=== PATIENT | female | born 1965 | race Caucasian/White ===

== ENCOUNTER 2017-06-14 17:10 | Emergency (ER) | payer OTHER ==
[~2017-06-14] VITALS: Ht 152.4 cm; Wt 70.8 kg
[~2017-06-14 17:10] MED LIST: IMITREX50 MG PO; PROPRANOLOL HCL40 MG PO
[2017-06-14 17:16] VITALS: BP 105/95
[2017-06-14] MEDS: KETOROLAC 60 MG/2 ML VIAL IM ONE (18:41)
[2017-06-14] MEDS: METOCLOPRAMIDE 10 MG/2 ML INJ VIAL IM ONE (18:44)
[2017-06-14] MEDS: MORPHINE SULFATE 4 MG/ML SYR IM ONE (19:05)
[2017-06-14 19:45] VITALS: BP 125/72
== END 2017-06-14 19:45 | disposition home or self-care (01) ==
LOC: MED 17:10
DX: G43.909 Migraine, unspecified, not intractable, without status migrainosus (principal); Z79.899 Other long term (current) drug therapy
CPT/HCPCS: 96372; 99284; J1885; J2270; J2765

== ENCOUNTER 2018-01-05 19:52 | Emergency (ER) | payer OTHER ==
[~2018-01-05] VITALS: Ht 152.4 cm; Wt 74.8 kg
[~2018-01-05 19:52] MED LIST changes: +IMI50 PO; -IMITREX50 MG PO; +PROP40TA29 PO; -PROPRANOLOL HCL40 MG PO
[2018-01-05 19:55] VITALS: BP 127/78
--- NOTE | 2018-01-05 20:02 | NUR ---
URINE SAMPLE COLLECTED.
--- NOTE | 2018-01-05 20:30 | NUR ---
52 Y/O F W/C/O EPIGASTRIC PAIN WHICH RADIATES TO BACK X 1 MTH ON AND OFF. MED HX CHOLYCYSTECTOMY 20 YRS AGO, HYPOTHYROIDISM. NO OTHER S/S OF DISTRESS NOTED. ER MADE AWARE.
[2018-01-05] MEDS ORDERED: DICYCLOMINE HCL LIQUID 20 MG, ALUMINUM HYD/MAG/SIMETHICONE 30 ML, LIDOCAINE VISCOUS 2% ... PO ONE ×3 (21:05)
[2018-01-05 21:46] LABS: BASOPHILS # (AUTO) 0.1 K/uL (0.00-0.22); BASOPHILS % (AUTO) 0.6 % (0.0-2.0); EOSINOPHILS # (AUTO) 0.1 K/uL (0-0.4); EOSINOPHILS % (AUTO) 1.7 % (0.0-4.0); HEMATOCRIT 41.4 % (36-48); HEMOGLOBIN 13.9 g/dL (12.0-16.0); MEAN CORPUSCULAR HEMOGLOBIN 30 pg (27-31); MEAN CORPUSCULAR HGB CONC 34 g/dL (33-37); MEAN CORPUSCULAR VOLUME 90.5 fL (80-94); MONOCYTES # (AUTO) 0.5 K/uL (0.8-1.0); MONOCYTES % (AUTO) 6.7 % (1.7-9.3); NEUTROPHILS # (AUTO) 4.4 K/uL (1.8-7.7); PLATELET COUNT (AUTO) 238 K/uL (140-450); RED BLOOD CELL COUNT(AUTO) 4.58 MIL/uL (4.20-5.40); RED CELL DISTRIBUTION WIDTH 13.8 % (11.6-13.7); WHITE BLOOD COUNT (AUTO) 8.1 K/uL (4.8-10.8)
--- NOTE | 2018-01-05 22:03 | NUR ---
PT RESTING IN BED, VSS, STATES HER PAIN HAS IMPROVED. ER MD MADE AWARE.
[2018-01-05 22:07] LABS: ANION GAP 11.9 (8-16); CARBON DIOXIDE 25.6 mmol/L (21-32); CREATININE 0.6 mg/dL (0.6-1.3); POTASSIUM 3.5 mmol/L (3.5-5.1)
[2018-01-05 22:12] LABS: ALBUMIN 3.9 g/dL (3.4-5.0); TOTAL BILIRUBIN 0.2 mg/dL (0.0-1.0)
[2018-01-05 22:26] VITALS: BP 107/72
--- NOTE | 2018-01-05 22:26 | NUR ---
Patient discharged with v/s stable. Written and verbal after care instructions given and explained. Patient alert, oriented and verbalized understanding of instructions. Ambulatory with steady gait. All questions addressed prior to discharge. ID band removed. Patient advised to follow up with PMD. Rx of MYLANTA given. Patient educated on indication of medication including possible reaction and side effects. Opportunity to ask questions provided and answered.
== END 2018-01-05 22:26 | disposition home or self-care (01) ==
LOC: MED 19:52
DX: R10.13 Epigastric pain (principal); E03.9 Hypothyroidism, unspecified; Z90.49 Acquired absence of other specified parts of digestive tract
CPT/HCPCS: 36415; 80053; 81002; 81025; 83690; 84484; 85025; 93005; 99285

== ENCOUNTER 2022-10-27 09:59 | Emergency (ER) | payer OTHER ==
[~2022-10-27] VITALS: Ht 152.4 cm; Wt 68.0 kg
[2022-10-27 10:15] VITALS: BP 110/61
--- NOTE | 2022-10-27 10:22 | NUR ---
ASSUMED PATIENT CARE, NURSING ASSESSMENT COMPLETED.
[2022-10-27] MEDS ORDERED: ACETAMINOPHEN EXTRA STRENGTH 500 MG TAB PO ONE (11:45)
[2022-10-27] MEDS ORDERED: cephALEXin 500 MG CAP PO ONE (11:45)
[2022-10-27] MEDS ORDERED: SULFAMETH/TRIMETH DS 800/160MG 1 TAB PO ONE (11:45)
[2022-10-27] MEDS ORDERED: SULF-59 PO (12:10)
[2022-10-27] MEDS ORDERED: CEPH-588 PO (12:10)
[2022-10-27] MEDS ORDERED: BACI-416 TP (12:11)
[2022-10-27] MEDS ORDERED: BACITRACIN OINT 500 UNITS/GM PKT TP ONE (12:15)
--- NOTE | 2022-10-27 12:58 | NUR ---
DISPO AND MEDICAL DECISION MAKING DC HOME WITH E-RX AND AFTERCARE INSTRUCTIONS, UNDERSTOOD BY PATIENT WELL, WUND CARE COMPLETED. DC AMBULATORY, VS WNL.
[2022-10-27 13:00] VITALS: BP 112/61
== END 2022-10-27 13:00 | disposition home or self-care (01) ==
LOC: MED 09:59
DX: L03.116 Cellulitis of left lower limb (principal); L02.416 Cutaneous abscess of left lower limb
CPT/HCPCS: 99284

== ENCOUNTER 2023-05-14 11:53 | Inpatient (IN) | payer OTHER ==
[~2023-05-14] VITALS: Ht 152.4 cm; Wt 72.6 kg
[~2023-05-14 11:53] MED LIST changes: +BACI-418 TP; +CEPH-588 PO; +SULF-59 PO
[2023-05-14 12:22] VITALS: BP 109/67; PULSE 75; RESP 16; TEMP 98; O2SAT 98
[2023-05-14 12:50] VITALS: O2SAT 98
[2023-05-14] MEDS ORDERED: ALUMINUM HYD/MAG/SIMETHICONE 30 ML UDC PO ONE (13:10)
[2023-05-14] MEDS ORDERED: ONDANSETRON 4 MG ODT PO ONE (13:10)
[2023-05-14] MEDS ORDERED: KETOROLAC 30 MG/ML VIAL IM ONE (13:10)
[2023-05-14 13:34] LABS: BASOPHILS % (AUTO) 0.3 % (0.0-2.0); EOSINOPHILS % (AUTO) 0.2 % (0.0-4.0); HEMATOCRIT 37.5 % (36-48); HEMOGLOBIN 12.5 g/dL (12.0-16.0); LYMPHOCYTES # (AUTO) 0.7 K/uL (2.5-16.5); LYMPHOCYTES % (AUTO) 5.7 % (20.5-51.1); MEAN CORPUSCULAR HEMOGLOBIN 31 pg (27-31); MEAN CORPUSCULAR HGB CONC 33 g/dL (33-37); MEAN CORPUSCULAR VOLUME 93.9 fL (80-94); MONOCYTES # (AUTO) 0.5 K/uL (0.8-1.0); MONOCYTES % (AUTO) 3.9 % (1.7-9.3); NEUTROPHILS # (AUTO) 10.9 K/uL (1.8-7.7); NEUTROPHILS % (AUTO) 89.9 % (42.2-75.2); PLATELET COUNT (AUTO) 225 K/uL (140-450); RED CELL DISTRIBUTION WIDTH 15.3 % (11.6-13.7); WHITE BLOOD COUNT (AUTO) 12.1 K/uL (4.8-10.8)
[2023-05-14 13:50] LABS: ALBUMIN 2.5 g/dL (3.4-5.0); ANION GAP 9.2 (8-16); CALCIUM 8.4 mg/dL (8.5-10.1); CARBON DIOXIDE 29.1 mmol/L (21-32); CREATININE 0.6 mg/dL (0.6-1.3); POTASSIUM 3.3 mmol/L (3.5-5.1); TOTAL BILIRUBIN 0.6 mg/dL (0.0-1.0); TOTAL PROTEIN, SERUM 6.4 g/dL (6.4-8.2)
[2023-05-14] MEDS ORDERED: PANTOPRAZOLE 40 MG INJ VIAL IVP ONE (15:20)
[2023-05-14] MEDS ORDERED: PIPERACILLIN/TAZOBACTAM 3.375 GM in DEXTROSE 5% 50 ML IV ONE (15:20)
[2023-05-14] MEDS ORDERED: NACL 0.9% 1,000 ML IV ONE (15:20)
[2023-05-14] MEDS ORDERED: PIPERACILLIN/TAZOBACTAM 3.375 GM VIAL IV ONE (15:22)
[2023-05-14] MEDS ORDERED: MORPHINE SULFATE 2 MG/ML SYR IVP PRN ×2 (15:40→20:15)
[2023-05-14] MEDS ORDERED: ONDANSETRON 4 MG/2 ML VIAL IVP PRN ×2 (15:40→16:55)
[2023-05-14] MEDS ORDERED: ACETAMINOPHEN 325 MG TAB PO PRN (15:40)
[2023-05-14] MEDS ORDERED: NACL 0.9% 1,000 ML IV SCH (15:40)
[2023-05-14] MEDS ORDERED: LEVO0.0512 PO (15:52)
[2023-05-14 16:10] LABS: INR 0.94 (0.8-1.2); PARTIAL THROMBOPLASTIN TIME 27.9 secs (22-35.6); PROTHROMBIN TIME 9.9 secs (10.8-13.4)
[2023-05-14 16:24] LABS: LACTIC ACID 0.7 mmol/L (0.4-2.0)
[2023-05-14] MEDS ORDERED: LIDOCAINE/EPI MPF 1%1:200000 30 ML VIAL INJ ONE (16:45)
[2023-05-14] MEDS ORDERED: BUPIVACAINE-MPF 0.25% 30 ML VIAL INJ ONE (16:46)
[2023-05-14] MEDS ORDERED: HYDROmorphone 1 MG/ML AMP IVP PRN (16:55)
[2023-05-14] MEDS ORDERED: ROCURONIUM 50 MG/5 ML VIAL IV ONE ×3 (17:15→18:24)
[2023-05-14] MEDS ORDERED: SUCCINYLCHOLINE CHLORIDE 200 MG/10 ML VIAL IVP ONE ×2 (17:15→17:25)
[2023-05-14] MEDS ORDERED: fentaNYL citrate 0.05 MG/ML - 50mL vial IV ONE (17:15)
[2023-05-14] MEDS ORDERED: DEXAMETHASONE 4 MG/ML VIAL ONE ×2 (17:15→17:25)
[2023-05-14] MEDS ORDERED: DESFLURANE 240 ML BTL INH ONE (17:15)
[2023-05-14] MEDS ORDERED: SUGAMMADEX SODIUM 200 MG/2 ML VIAL IV ONE ×2 (17:15→19:34)
[2023-05-14] MEDS ORDERED: ONDANSETRON 4 MG/2 ML VIAL ONE ×2 (17:15→17:25)
[2023-05-14] MEDS ORDERED: fentaNYL citrate 0.05 MG/ML VIAL ONE (17:22)
[2023-05-14] MEDS ORDERED: PROPOFOL 200 MG/20 ML VIAL IV ONE (17:25)
[2023-05-14] MEDS ORDERED: HYDROmorphone PFS 2 MG/ML SYR ONE (18:07)
[2023-05-14] MEDS ORDERED: ONDANSETRON 4 MG/2 ML VIAL IV PRN (20:15)
[2023-05-14 20:52] VITALS: BP 126/75; PULSE 65; PULSE 69; RESP 18; TEMP 96.5; O2SAT 96
[2023-05-14] MEDS ORDERED: PIPERACILLIN/TAZOBACTAM 3.375 GM in DEXTROSE 5% 50 ML IV SCH (21:00)
[2023-05-15] VITALS: BP 103/55; PULSE 53; PULSE 66; RESP 18; TEMP 97.4; O2SAT 97
[2023-05-15] MEDS: DEXT 5% /NACL 0.9% 1,000 ML IV SCH ×4 (00:14→21:53)
[2023-05-15] MEDS ORDERED: PIPERACILLIN/TAZOBACTAM 4.5 GM VIAL IV ONE ×2 (00:22→06:02)
[2023-05-15] MEDS: PIPERACILLIN/TAZOBACTAM 4.5 GM in DEXTROSE 5% 100 ML IV SCH ×5 (00:42→23:30)
[2023-05-15 04:00] VITALS: BP 114/60; PULSE 56; PULSE 65; RESP 18; TEMP 97; O2SAT 97
[2023-05-15] MEDS: MORPHINE SULFATE 4 MG/ML SYR IV PRN ×2 (04:27→09:04)
[2023-05-15 06:07] LABS: HEMATOCRIT 34.2 % (36-48); HEMOGLOBIN 11.6 g/dL (12.0-16.0); LYMPHOCYTES # (AUTO) 0.5 K/uL (2.5-16.5); LYMPHOCYTES % (AUTO) 5.3 % (20.5-51.1); MEAN CORPUSCULAR HEMOGLOBIN 32 pg (27-31); MEAN CORPUSCULAR HGB CONC 34 g/dL (33-37); MEAN CORPUSCULAR VOLUME 93.8 fL (80-94); MONOCYTES # (AUTO) 0.4 K/uL (0.8-1.0); MONOCYTES % (AUTO) 3.9 % (1.7-9.3); NEUTROPHILS % (AUTO) 90.8 % (42.2-75.2); PLATELET COUNT (AUTO) 219 K/uL (140-450); RED BLOOD CELL COUNT(AUTO) 3.65 MIL/uL (4.20-5.40); WHITE BLOOD COUNT (AUTO) 9.9 K/uL (4.8-10.8)
[2023-05-15 06:26] LABS: ALBUMIN 1.9 g/dL (3.4-5.0); ANION GAP 7.7 (8-16); CARBON DIOXIDE 28.9 mmol/L (21-32); CREATININE 0.6 mg/dL (0.6-1.3); POTASSIUM 3.6 mmol/L (3.5-5.1); TOTAL BILIRUBIN 0.6 mg/dL (0.0-1.0); TOTAL PROTEIN, SERUM 5.6 g/dL (6.4-8.2)
[2023-05-15 08:00] VITALS: BP 104/54; PULSE 59; PULSE 65; RESP 19; TEMP 97.7; O2SAT 98
[2023-05-15] MEDS: ENOXAPARIN 40 MG/0.4 ML SYR SUBQ SCH (09:22)
[2023-05-15] MEDS: PANTOPRAZOLE 40 MG INJ VIAL IVP SCH (10:41)
[2023-05-15 12:00] VITALS: BP 134/56; PULSE 56; PULSE 62; RESP 19; TEMP 97.8; O2SAT 98
[2023-05-15] MEDS ORDERED: SUMAtriptan succinate 50 MG TAB PO PRN (12:35)
[2023-05-15] MEDS: HYDROmorphone 1 MG/ML AMP IVP PRN ×2 (13:02→18:30)
[2023-05-15 16:00] VITALS: BP 113/53; PULSE 56; PULSE 61; RESP 19; TEMP 98; O2SAT 98
[2023-05-15 20:00] VITALS: BP 103/53; PULSE 60; RESP 19; TEMP 97.6; O2SAT 95; O2SAT 98
[2023-05-15] MEDS: LORazepam 2 MG/ML VIAL IVP PRN (20:40)
[2023-05-15] MEDS ORDERED: BACITRACIN OINT 15000 UNITS/30 GM TUBE TP SCH (21:00)
[2023-05-16] VITALS (7 sets, daily range): BP systolic 104–117; BP diastolic 59–67; PULSE 55–72; RESP 17–20; TEMP 97–99; O2SAT 94–97
[2023-05-16] MEDS: HYDROmorphone 1 MG/ML AMP IVP PRN ×4 (00:50→18:50)
[2023-05-16] MEDS: PIPERACILLIN/TAZOBACTAM 4.5 GM in DEXTROSE 5% 100 ML IV SCH ×4 (05:19→23:06)
[2023-05-16] MEDS: DEXT 5% /NACL 0.9% 1,000 ML IV SCH ×2 (05:20→13:36)
[2023-05-16] MEDS: LEVOTHYROXINE 0.05 MG TAB PO SCH (05:39)
[2023-05-16 05:44] LABS: ALBUMIN 1.8 g/dL (3.4-5.0); ANION GAP 9.5 (8-16); CALCIUM 7.9 mg/dL (8.5-10.1); CARBON DIOXIDE 28.6 mmol/L (21-32); CHOL/HDL RATIO 4.8 (1-4.5); CREATININE 0.6 mg/dL (0.6-1.3); MAGNESIUM 1.8 mg/dL (1.8-2.4); PHOSPHORUS 3.7 mg/dL (2.5-4.9); POTASSIUM 3.1 mmol/L (3.5-5.1); TOTAL BILIRUBIN 0.4 mg/dL (0.0-1.0); TOTAL PROTEIN, SERUM 5.6 g/dL (6.4-8.2)
[2023-05-16] MEDS: PANTOPRAZOLE 40 MG INJ VIAL IVP SCH (08:23)
[2023-05-16] MEDS: ENOXAPARIN 40 MG/0.4 ML SYR SUBQ SCH (08:30)
[2023-05-16] MEDS ORDERED: PPN PER PHARMACY MC PRN (09:38)
[2023-05-16] MEDS: KCL 20 MEQ IN 100 mL PREMIX 200 ML IV PRN (15:57)
[2023-05-16] MEDS: BLOOD GLUCOSE MONITORING 1 DEV DEV MC SCH ×2 (19:51→23:06)
[2023-05-16] MEDS ORDERED: INSULIN LISPRO SLIDING SCALE 100 UNITS/ML VIAL SUBQ PRN (20:00)
[2023-05-16] MEDS ORDERED: MULTIVITAMIN-12 10 ML in DEXTROSE 50% 600 ML, AMINO ACIDS 8.5% 600 ML IV SCH ×3 (20:00)
[2023-05-16] MEDS: LORazepam 2 MG/ML VIAL IVP PRN (21:30)
[2023-05-17] VITALS (7 sets, daily range): BP systolic 102–120; BP diastolic 61–71; PULSE 65–76; RESP 16–20; TEMP 97–99.5; O2SAT 96–98
[2023-05-17] MEDS: HYDROmorphone 1 MG/ML AMP IVP PRN ×4 (02:10→22:08)
[2023-05-17] MEDS: BLOOD GLUCOSE MONITORING 1 DEV DEV MC SCH ×3 (05:09→18:02)
[2023-05-17] MEDS: PIPERACILLIN/TAZOBACTAM 4.5 GM in DEXTROSE 5% 100 ML IV SCH ×4 (05:09→23:15)
[2023-05-17 05:32] LABS: ANION GAP 10.2 (8-16); CALCIUM 8.3 mg/dL (8.5-10.1); CREATININE 0.7 mg/dL (0.6-1.3); POTASSIUM 3.2 mmol/L (3.5-5.1)
[2023-05-17 05:35] LABS: PHOSPHORUS 4.3 mg/dL (2.5-4.9)
[2023-05-17] MEDS: LEVOTHYROXINE 0.05 MG TAB PO SCH (05:35)
[2023-05-17] MEDS: ENOXAPARIN 40 MG/0.4 ML SYR SUBQ SCH (08:43)
[2023-05-17] MEDS: PANTOPRAZOLE 40 MG INJ VIAL IVP SCH (08:48)
[2023-05-17] MEDS: KCL 20 MEQ IN 100 mL PREMIX 200 ML IV PRN (18:04)
[2023-05-17] MEDS: MULTIVITAMIN-12 10 ML in DEXTROSE 50% 600 ML, AMINO ACIDS 8.5% 600 ML, FAT EMULSION 20%... IV SCH ×4 (22:04)
[2023-05-18 04:00] VITALS: BP 111/59; PULSE 70; RESP 18; TEMP 98; O2SAT 98
[2023-05-18 06:00] LABS: ANION GAP 10.7 (8-16); CALCIUM 8.6 mg/dL (8.5-10.1); CARBON DIOXIDE 29.1 mmol/L (21-32); CREATININE 0.6 mg/dL (0.6-1.3); POTASSIUM 3.8 mmol/L (3.5-5.1)
[2023-05-18 06:05] LABS: MAGNESIUM 2.1 mg/dL (1.8-2.4); PHOSPHORUS 3.2 mg/dL (2.5-4.9)
[2023-05-18] MEDS: PIPERACILLIN/TAZOBACTAM 4.5 GM in DEXTROSE 5% 100 ML IV SCH ×3 (06:05→18:41)
[2023-05-18] MEDS: LEVOTHYROXINE 0.05 MG TAB PO SCH (06:30)
[2023-05-18] MEDS: BLOOD GLUCOSE MONITORING 1 DEV DEV MC SCH ×4 (06:34→18:17)
[2023-05-18 08:00] VITALS: PULSE 79; RESP 18; TEMP 97.3; O2SAT 98
[2023-05-18 08:12] LABS: BASOPHILS % (AUTO) 0.5 % (0.0-2.0); EOSINOPHILS # (AUTO) 0.1 K/uL (0-0.4); EOSINOPHILS % (AUTO) 0.8 % (0.0-4.0); HEMATOCRIT 39.3 % (36-48); HEMOGLOBIN 13.1 g/dL (12.0-16.0); LYMPHOCYTES # (AUTO) 1.1 K/uL (2.5-16.5); MEAN CORPUSCULAR HEMOGLOBIN 32 pg (27-31); MEAN CORPUSCULAR HGB CONC 34 g/dL (33-37); MEAN CORPUSCULAR VOLUME 94.7 fL (80-94); MONOCYTES # (AUTO) 0.5 K/uL (0.8-1.0); MONOCYTES % (AUTO) 5.3 % (1.7-9.3); NEUTROPHILS # (AUTO) 7.3 K/uL (1.8-7.7); NEUTROPHILS % (AUTO) 81.4 % (42.2-75.2); PLATELET COUNT (AUTO) 285 K/uL (140-450); RED BLOOD CELL COUNT(AUTO) 4.15 MIL/uL (4.20-5.40); RED CELL DISTRIBUTION WIDTH 15.1 % (11.6-13.7); WHITE BLOOD COUNT (AUTO) 8.9 K/uL (4.8-10.8)
[2023-05-18] MEDS: PANTOPRAZOLE 40 MG INJ VIAL IVP SCH (09:48)
[2023-05-18] MEDS: HYDROmorphone 1 MG/ML AMP IVP PRN (09:51)
[2023-05-18] MEDS: ENOXAPARIN 40 MG/0.4 ML SYR SUBQ SCH (10:05)
[2023-05-18 20:00] VITALS: BP 95/69; PULSE 90; RESP 18; TEMP 96.8; O2SAT 96
[2023-05-18] MEDS: MULTIVITAMIN-12 10 ML in DEXTROSE 50% 600 ML, AMINO ACIDS 8.5% 600 ML, FAT EMULSION 20%... IV SCH ×4 (20:02)
[2023-05-19] MEDS: PIPERACILLIN/TAZOBACTAM 4.5 GM in DEXTROSE 5% 100 ML IV SCH ×2 (00:09→05:46)
[2023-05-19] MEDS: BLOOD GLUCOSE MONITORING 1 DEV DEV MC SCH ×4 (00:13→18:00)
[2023-05-19 00:40] VITALS: BP 106/66; PULSE 79; RESP 18; O2SAT 96
[2023-05-19] MEDS: HYDROmorphone 1 MG/ML AMP IVP PRN ×3 (00:43→21:34)
[2023-05-19 05:29] LABS: ANION GAP 10.3 (8-16); CALCIUM 8.4 mg/dL (8.5-10.1); CARBON DIOXIDE 27.6 mmol/L (21-32); CREATININE 0.6 mg/dL (0.6-1.3); POTASSIUM 3.9 mmol/L (3.5-5.1)
[2023-05-19 05:31] LABS: PHOSPHORUS 3.4 mg/dL (2.5-4.9)
[2023-05-19] MEDS: LEVOTHYROXINE 0.05 MG TAB PO SCH (05:52)
[2023-05-19 08:00] VITALS: PULSE 97; RESP 18; TEMP 98.7; O2SAT 97
[2023-05-19] MEDS: PANTOPRAZOLE 40 MG INJ VIAL IVP SCH (09:19)
[2023-05-19] MEDS: ENOXAPARIN 40 MG/0.4 ML SYR SUBQ SCH (09:24)
[2023-05-19 20:00] VITALS: BP 104/65; PULSE 88; RESP 18; TEMP 98.4; O2SAT 98
[2023-05-19] MEDS: MULTIVITAMIN-12 10 ML in DEXTROSE 50% 600 ML, AMINO ACIDS 8.5% 600 ML, FAT EMULSION 20%... IV SCH ×4 (20:12)
[2023-05-20] MEDS: BLOOD GLUCOSE MONITORING 1 DEV DEV MC SCH ×4 (00:17→16:19)
[2023-05-20 04:00] VITALS: BP 103/62; PULSE 73; RESP 18; TEMP 97.4; O2SAT 100
[2023-05-20 05:29] LABS: ANION GAP 11.2 (8-16); CALCIUM 8.5 mg/dL (8.5-10.1); CARBON DIOXIDE 27.8 mmol/L (21-32); CREATININE 0.6 mg/dL (0.6-1.3)
[2023-05-20 05:33] LABS: MAGNESIUM 1.8 mg/dL (1.8-2.4); PHOSPHORUS 3.6 mg/dL (2.5-4.9)
[2023-05-20] MEDS: LEVOTHYROXINE 0.05 MG TAB PO SCH (06:37)
[2023-05-20] MEDS: PANTOPRAZOLE 40 MG INJ VIAL IVP SCH (08:24)
[2023-05-20] MEDS: HYDROmorphone 1 MG/ML AMP IVP PRN ×2 (08:25→15:44)
[2023-05-20] MEDS: ENOXAPARIN 40 MG/0.4 ML SYR SUBQ SCH (08:30)
[2023-05-20 09:15] VITALS: TEMP 98.1
[2023-05-20 09:19] VITALS: PULSE 77; RESP 18; O2SAT 100
[2023-05-20 09:39] VITALS: BP 104/64; PULSE 77; RESP 18; TEMP 98.1; O2SAT 100
[2023-05-20] MEDS ORDERED: PIPERACILLIN/TAZOBACTAM 4.5 GM in DEXTROSE 5% 100 ML IV SCH (12:00)
[2023-05-20 15:34] LABS: BASOPHILS % (AUTO) 0.5 % (0.0-2.0); EOSINOPHILS # (AUTO) 0.1 K/uL (0-0.4); EOSINOPHILS % (AUTO) 0.8 % (0.0-4.0); HEMATOCRIT 35.7 % (36-48); HEMOGLOBIN 12.1 g/dL (12.0-16.0); LYMPHOCYTES # (AUTO) 1.6 K/uL (2.5-16.5); LYMPHOCYTES % (AUTO) 18.4 % (20.5-51.1); MEAN CORPUSCULAR HEMOGLOBIN 32 pg (27-31); MEAN CORPUSCULAR HGB CONC 34 g/dL (33-37); MEAN CORPUSCULAR VOLUME 93.5 fL (80-94); MONOCYTES # (AUTO) 0.4 K/uL (0.8-1.0); MONOCYTES % (AUTO) 5.1 % (1.7-9.3); NEUTROPHILS # (AUTO) 6.4 K/uL (1.8-7.7); NEUTROPHILS % (AUTO) 75.2 % (42.2-75.2); PLATELET COUNT (AUTO) 318 K/uL (140-450); RED BLOOD CELL COUNT(AUTO) 3.82 MIL/uL (4.20-5.40); RED CELL DISTRIBUTION WIDTH 14.6 % (11.6-13.7); WHITE BLOOD COUNT (AUTO) 8.5 K/uL (4.8-10.8)
[2023-05-20] MEDS ORDERED: PANT40EC PO (16:22)
[2023-05-20 17:07] VITALS: BP 105/63; PULSE 84; RESP 18; TEMP 97.8; O2SAT 98
== END 2023-05-20 17:35 | disposition home health service (06) | DRG 222 ==
LOC: MED 11:53 → MMU 17:14 → MTU 18:36
PROVIDERS: ADMIT Hospitalist; ATTEND Hospitalist
PROC: 0DU707Z Supplement Stomach, Pylorus with Autologous Tissue Substitute, Open Approach (ICD-10-PCS; 2023-05-14)
PROC: 3E1M38Z Irrigation of Peritoneal Cavity using Irrigating Substance, Percutaneous Approach (ICD-10-PCS; principal; 2023-05-14 16:30)
DX: K25.5 Chronic or unspecified gastric ulcer with perforation (principal); K65.3 Choleperitonitis; E44.0 Moderate protein-calorie malnutrition; E87.6 Hypokalemia; K21.9 Gastro-esophageal reflux disease without esophagitis; D72.829 Elevated white blood cell count, unspecified; Z20.822 Contact with and (suspected) exposure to COVID-19; E07.9 Disorder of thyroid, unspecified; Z90.49 Acquired absence of other specified parts of digestive tract; Z79.2 Long term (current) use of antibiotics; Z79.899 Other long term (current) drug therapy; Z68.31 Body mass index [BMI] 31.0-31.9, adult
CPT/HCPCS: 36415; 80048; 80053; 82948; 83605; 83690; 83735; 84100; 85025; 85610; 85730; 86886; 86900; 86901; 87040; 87081; 96365; 96372; 96375; 97116; 97163-GP; 97530; 99291; A9153; C9113; J0330; J1100; J1170; J1650; J1815; J1885; J2001; J2060; J2270; J2405; J2543; J2704; J3010; J3480; J3490; J7060; J7120; Q0162